=== PATIENT | male | born 1960 | race Caucasian/White ===

== ENCOUNTER 2023-01-31 15:17 | Emergency (ER) | payer SELFPAY ==
--- OUTSIDE RECORDS SUMMARY | 2023-01-31 15:19 | XMS REPORT | Continuity of Care Document ---
:[address] [facility] t Address [address] [place] [address] [address] [place] [address] Care Team Providers Name Role Phone NANCY REAVES Attending Clinician Unavailable BRANDT CHANG Attending Clinician Unavailable BRIGIDO SCHWARZ Attending Clinician Unavailable BRANDT CHANG Admitting Clinician Unavailable Problems This patient has no known problems. Allergies, Adverse Reactions, Alerts This patient has no known allergies or adverse reactions. Medications This patient has no known medications. Procedures This patient has no known procedures. Encounters Start End Encounter Admission Attending Care Care Encounter Source Date/Time Date/Time Type Type Clinicians Facility Department ID 2021-06-12 2021-06-12 Outpatient NANCY REAVES [id number] 10:40:00 15:56:00 moises de leon 2019-09-06 2019-09-07 Outpatient LANDEN CHANG [id number] 17:45:00 11:30:00 BRANDT 2019-07-11 2019-07-11 Emergency E RACHEL SCHWARZ [facility] [id number] [facility] 10:04:00 13:39:00 BRIGIDO de leon 2019-03-02 2019-03-02 Emergency E [id number] [facility] 18:45:00 18:45:00 2018-10-08 2018-10-08 Emergency E [id number] [facility] 11:35:00 11:35:00 Results This patient has no known results.
[2023-01-31] MEDS ORDERED: MORPHINE 4 MG/ML SYR ONE (15:37)
[2023-01-31] MEDS ORDERED: NA CHLORIDE 0.9% 1,000 ML ONE (15:37)
[2023-01-31] MEDS ORDERED: KETOROLAC 30 MG/ML INJ ONE (15:37)
[2023-01-31] MEDS ORDERED: ONDANSETRON 4 MG/2 ML VIAL ONE (15:37)
[2023-01-31 15:41] LABS: Absolute Lymphocytes (CBC) 1.9 K/uL (0.7-4.9); Hematocrit 47.4 % (39.6-49.0); MCV 90.2 fL (80-100); MPV 8.7 fL (7.6-11.3); Platelets 209 thou/uL (152-406); RBC Red Blood Cell Count 5.26 M/uL (4.33-5.43)
[2023-01-31 15:58] LABS: Albumin 3.8 g/dL (3.4-5.0); Bilirubin Total 0.5 mg/dL (0.2-1.0); Potassium 3.9 mEq/L (3.5-5.1); Protein, Total 7.4 g/dL (6.4-8.2)
--- NOTE | 2023-01-31 16:32 | RAD REPORT ---
EXAM DESCRIPTION: CTAbdomen Pelvis W Contrast - 01/31/2023 4:16 pm CLINICAL HISTORY: Abdominal pain. FLANK PAIN COMPARISON: No comparisons TECHNIQUE: Biphasic CT imaging of the abdomen and pelvis was performed with 100 ml non-ionic IV cont rast. All CT scans are performed using dose optimization technique as appropriate and may include automated exposure control or mA/KV adjustment according to patient size. FINDINGS: The lung bases are clear. The liver, spleen, pancreas, adrenal glands are within normal limits. Moderately severe bilateral hyd ronephrosis and hydroureter. 8 mm calculus is present in the right renal pelvis. 4 mm calculus is see n superior calyx left kidney. 3 mm calculus is seen in the dependent portion of the urinary bladder. Prostate gland projects slightly into the bladder base. No bowel obstruction, free air, free fluid or abscess. Small fat containing right inguinal hernia. Ap pendectomy. Diverticulosis coli is present of the sigmoid colon. No evidence of significant lymphaden opathy. Mild lumbar degenerative changes. IMPRESSION: Moderate bilateral hydronephrosis and hydroureter noted. 8 mm stone is present right renal pelvis. 4 mm stone superior calyx left kidney. 3 mm stone is present urinary bladder.
[2023-01-31 16:36] LABS: Specific Gravity 1.025 (1.005-1.030); Urine Bacteria <20 /HPF (<20); Urine Bilirubin NEGATIVE (Negative); Urine Blood Trace (Negative); Urine Clarity Turbid (Clear); Urine Color Light-Yellow (Yellow); Urine Glucose NEGATIVE (Negative); Urine Mucus Slight /HPF (None Seen); Urine Protein 1+ (Negative); Urine RBC <5 /HPF (None Seen); Urine Urobilinogen Normal (Normal); Urine pH 5.5 (5.0-7.0)
--- NOTE | 2023-01-31 16:53 | EDPHYS ---
Physician Documentation [facility] Name: Roland Gavin Age: 62 yrs Sex: Male : 1960 Arrival Date: 01/31/2023 Time: 15:17 Bed 15 Private MD: ED Physician Jc Varghese HPI: 01/31 15:19 This 62 yrs old Male presents to ER via Unassigned with complaints of right flank pain. sb4 15:19 The patient complains of pain in the right low back. The pain radiates to the right sb4 lower quadrant. Onset: The symptoms/episode began/occurred today. Modifying factors: The symptoms are alleviated by nothing. the symptoms are aggravated by nothing. Associated signs and symptoms: Pertinent positives: dysuria, hematuria. Severity of pain: At its worst the pain was severe. The patient has experienced similar episodes in the past, a few times. The patient has been recently seen by a physician: in outside ED, 2 day(s) ago, with similar presenting complaints, and apparently given a diagnosis of 10 mm and 5 mm nephrolithiasis. Historical: - Allergies: 15:22 No Known Allergies; mb9 - Home Meds: 15:22 None [Active]; mb9 - PMHx: 15:22 None; mb9 - PSHx: 15:22 back; mb9 - Immunization history:: Adult Immunizations up to date. - Social history:: Smoking status: Patient denies any tobacco usage or history of. ROS: 15:23 Constitutional: Negative for fever, chills, and weight loss, sb4 15:23 Back: Positive for 15:23 Back: Positive for flank pain, 15:23 : Positive for small amounts, hematuria, difficulty urinating, 15:23 All other systems are negative, Exam: 15:23 Head/Face: Normocephalic, atraumatic. Eyes: Extra-ocular motions intact. Periorbital sb4 areas with no swelling, redness, or edema. ENT: Mucous membranes moist. Cardiovascular: Regular rate and rhythm with a normal S1 and S2. Respiratory: Lungs have equal breath sounds bilaterally, clear to auscultation and percussion. No rales, rhonchi or wheezes noted. No increased work of breathing, no retractions or nasal flaring. Skin: Warm, dry with normal turgor. Normal color with no rashes, no lesions, and no evidence of cellulitis. MS/ Extremity: Pulses equal, no cyanosis. Neurovascular intact. Full, normal range of motion. 15:23 Constitutional: The patient appears alert, awake, in obvious pain, 15:23 Abdomen/GI: Inspection: obese Palpation: abdomen is soft and non-tender, Vital Signs: 15:20 BP 163 / 112; Pulse 88; Resp 18; Temp 98; Pulse Ox 100% on R/A; Weight 111.13 kg; mb9 Height 6 ft. 0 in. ; Pain 10/10; 16:12 BP 137 / 92; Pulse 91; Resp 18; Pulse Ox 99% on R/A; mb9 16:46 BP 139 / 88; Pulse 76; Resp 18; Pulse Ox 98% on R/A; mb9 15:20 Body Mass Index 33.23 (111.13 kg, 182.88 cm) mb9 15:20 Pain Scale: Adult mb9 MDM: 15:17 Patient medically screened. sb4 15:23 Differential diagnosis: nephrolithiasis, pyelonephritis, UTI, ureterolithiasis, sb4 hydronephrosis. 17:04 Data reviewed: vital signs, nurses notes, EMS record, lab test result(s), radiologic sb4 studies, I have discussed the patient's presentation/case with the attending Emergency Department Physician; and as a result, I will discharge patient. Consideration of Admission/Observation Escalation of care including admission/observation considered. Historians other than the Patient: Spouse/Significant Other: . Counseling: I had a detailed discussion with the patient and/or guardian regarding the historical points, exam findings, and any diagnostic results supporting the discharge/admit diagnosis, the presence of at least one elevated blood pressure reading (>120/80) during this emergency department visit, lab results, radiology results, the need for outpatient follow up, a urologist, to return to the emergency department if symptoms worsen or persist or if there are any questions or concerns that arise at home. ED course: when patient returned from CT, he was able to urinate a large amount, relieving his pain. CT showing stone in the renal pelvis, no current obstruction. I discussed all of these findings with patient and his and the option to transfer for urologic intervention. they stated that since his pain is better now and they already have a urology appointment in a few days, they would prefer to go home. strict return precautions given. I provided them with CT disc and results. they are in agreement and understand the plan. 01/31 15:18 Order name: CBC with Diff; Complete Time: 15:43 sb4 01/31 15:18 Order name: CMP; Complete Time: 16:08 sb4 01/31 15:18 Order name: UAM; Complete Time: 16:37 sb4 01/31 15:18 Order name: CT Abd/Pelvis - IV Contrast Only; Complete Time: 16:37 sb4 01/31 15:18 Order name: IV Saline Lock; Complete Time: 15:32 sb4 01/31 15:18 Order name: Labs collected and sent; Complete Time: 15:32 sb4 01/31 15:18 Order name: Bladder Scanner; Complete Time: 16:02 sb4 Administered Medications: 15:25 Drug: NS 0.9% IV 1000 ml IV at 1 bolus Per protocol; 1000 mL bolus Route: IV; Rate: 1 mb9 bolus; Site: left antecubital; 16:46 Follow up: Response: No adverse reaction; IV Status: Completed infusion mb9 15:25 Drug: Ondansetron IVP 4 mg IVP once; over 2 minutes Route: IVP; Site: left antecubital; mb9 16:46 Follow up: Response: No adverse reaction mb9 15:28 Drug: TORadol - Ketorolac IVP 15 mg IVP once Route: IVP; Site: left antecubital; mb9 16:47 Follow up: Response: No adverse reaction mb9 15:33 Drug: morphine IVP or IV 4 mg IVP once over 4 mins Route: IVP; Infused Over: 4 mins; mb9 Site: left antecubital; 16:47 Follow up: Response: No adverse reaction mb9 Disposition: 17:20 Co-signature as Attending Physician, Jc Varghese MD I reviewed the patient's care rt provided by the Advanced Practice Provider and agree with the diagnosis and treatment plan. Disposition Summary: 01/31/23 16:53 Discharge Ordered Notes: Location: Home sb4 Problem: new sb4 Symptoms: have improved sb4 Condition: Stable sb4 Diagnosis - Bilateral Nephrolithiasis sb4 Followup: sb4 - With: Private Physician - When: 2 - 3 days - Reason: Further diagnostic work-up, Recheck today's complaints, Re-evaluation by your physician Discharge Instructions: - Discharge Summary Sheet sb4 - Kidney Stones, [id number] sb4 Forms: - Work release form eb - Medication Reconciliation Form sb4 - Thank You Letter sb4 - Antibiotic Education sb4 - Prescription Opioid Use sb4 - Patient Portal Instructions sb4 - Leadership Thank You Letter sb4 Prescriptions: - acetaminophen-codeine 300-30 mg Oral tablet - take 1 tablet ORAL route every 6 hours as needed for pain; 12 tablet; Refills: sb4 0, Product Selection Permitted - ketorolac 10 mg Oral tablet - take 1 tablet ORAL route every 4 to 6 hours as needed for pain; do not exceed 4 sb4 doses per 24 hrs; 15 tablet; Refills: 0, Product Selection Permitted Signatures: Dispatcher [employer] Jazz Rice PA-C PA-C sb4 Darlin Davis RN RN mb9 Jc Varghese MD MD rt
--- NOTE | 2023-01-31 16:53 | ER ---
Nurse's Notes [facility] Name: Roland Gavin Age: 62 yrs Sex: Male : 1960 Arrival Date: 01/31/2023 Time: 15:17 Bed 15 Private MD: Diagnosis: Bilateral Nephrolithiasis Presentation: 01/31 15:20 Chief complaint: EMS states: "toned out for worsening kidney stone and severe pain. Pt mb9 denies N/V. pt states his bladder feels full and he isn't able to urinate.". Coronavirus screen: Vaccine status: Patient reports receiving the 2nd dose of the covid vaccine. Ebola Screen: No symptoms or risks identified at this time. Initial Sepsis Screen: Does the patient meet any 2 criteria? No. Patient's initial sepsis screen is negative. Does the patient have a suspected source of infection? No. Patient's initial sepsis screen is negative. Risk Assessment: Do you want to hurt yourself or someone else? Patient reports no desire to harm self or others. Onset of symptoms was January 31, 2023. 15:20 Method Of Arrival: EMS: [facility] mb9 15:20 Acuity: SHI 3 mb9 Historical: - Allergies: 15:22 No Known Allergies; mb9 - Home Meds: 15:22 None [Active]; mb9 - PMHx: 15:22 None; mb9 - PSHx: 15:22 back; mb9 - Immunization history:: Adult Immunizations up to date. - Social history:: Smoking status: Patient denies any tobacco usage or history of. Screenin:34 [facility] ED Fall Risk Assessment (Adult) History of falling in the last 3 months, mb9 including since admission No falls in past 3 months (0 pts) Confusion or Disorientation No (0 pts) Intoxicated or Sedated No (0 pts) Impaired Gait No (0 pts) Mobility Assist Device Used No (0 pt) Altered Elimination No (0 pt) Score/Fall Risk Level 0 - 2 = Low Risk Oriented to surroundings, Maintained a safe environment, Educated pt \\T\\ family on fall prevention, incl call for assistance when getting out of bed. Abuse screen: Denies threats or abuse. Nutritional screening: No deficits noted. Tuberculosis screening: No symptoms or risk factors identified. Assessment: 15:33 General: Appears uncomfortable, Behavior is cooperative. Pain: Complains of pain in mb9 abdomen and right lower quadrant and right low back Pain does not radiate. Pain currently is 10 out of 10 on a pain scale. Quality of pain is described as throbbing, Pain began suddenly, Is continuous. Neuro: Dougherty Agitation-Sedation Scale (RASS): 0 - Alert and Calm Level of Consciousness is awake, alert, obeys commands, Oriented to person, place, time, situation, Appropriate for age. Cardiovascular: Heart tones S1 S2 present Patient's skin is warm and dry. Respiratory: Airway is patent Respiratory effort is even, unlabored, Respiratory pattern is regular, symmetrical, Breath sounds are clear bilaterally. GI: Abdomen is round Bowel sounds present X 4 quads. Abd is soft X 4 quads Abd is non tender X 4 quads. : Urine is clear. : Reports inability to void, since this morning. EENT: No signs and/or symptoms were reported regarding the EENT system. Derm: Skin is pink, warm \\T\\ dry. 16:11 Reassessment: Patient and/or family updated on plan of care and expected duration. Pain mb9 level reassessed. Patient is alert, oriented x 3, equal unlabored respirations, skin warm/dry/pink. Patient states feeling better. Patient states symptoms have improved. 17:04 Reassessment: No changes from previously documented assessment. Patient and/or family mb9 updated on plan of care and expected duration. Pain level reassessed. Patient is alert, oriented x 3, equal unlabored respirations, skin warm/dry/pink. Vital Signs: 15:20 BP 163 / 112; Pulse 88; Resp 18; Temp 98; Pulse Ox 100% on R/A; Weight 111.13 kg; mb9 Height 6 ft. 0 in. ; Pain 10/10; 16:12 BP 137 / 92; Pulse 91; Resp 18; Pulse Ox 99% on R/A; mb9 16:46 BP 139 / 88; Pulse 76; Resp 18; Pulse Ox 98% on R/A; mb9 15:20 Body Mass Index 33.23 (111.13 kg, 182.88 cm) mb9 15:20 Pain Scale: Adult mb9 ED Course: 15:17 Patient arrived in ED. sb4 15:17 Jazz Gutierrez PA-C is PHCP. sb4 15:17 Jc Varghese MD is Attending Physician. sb4 15:20 Darlin Davis, BUCK is Primary Nurse. mb9 15:22 Triage completed. mb9 15:22 Arm band placed on. mb9 15:22 Inserted saline lock: 18 gauge in left antecubital area, using aseptic technique. mb9 15:33 CBC with Diff Sent. mb9 15:33 CMP Sent. mb9 15:34 No provider procedures requiring assistance completed. mb9 16:12 Placed in gown. Bed in low position. Call light in reach. Side rails up X 1. Client mb9 placed on continuous cardiac and pulse oximetry monitoring. NIBP monitoring applied. traffic monitor specialist on. 16:18 CT Abd/Pelvis - IV Contrast Only In Process Unspecified. EDMS 17:04 IV discontinued, intact, bleeding controlled, No redness/swelling at site. Pressure mb9 dressing applied. Administered Medications: 15:25 Drug: NS 0.9% IV 1000 ml IV at 1 bolus Per protocol; 1000 mL bolus Route: IV; Rate: 1 mb9 bolus; Site: left antecubital; 16:46 Follow up: Response: No adverse reaction; IV Status: Completed infusion mb9 15:25 Drug: Ondansetron IVP 4 mg IVP once; over 2 minutes Route: IVP; Site: left antecubital; mb9 16:46 Follow up: Response: No adverse reaction mb9 15:28 Drug: TORadol - Ketorolac IVP 15 mg IVP once Route: IVP; Site: left antecubital; mb9 16:47 Follow up: Response: No adverse reaction mb9 15:33 Drug: morphine IVP or IV 4 mg IVP once over 4 mins Route: IVP; Infused Over: 4 mins; mb9 Site: left antecubital; 16:47 Follow up: Response: No adverse reaction mb9 Medication: 15:34 VIS not applicable for this client. mb9 Output: 16:24 Urine: 330ml (Voided); Total: 330ml. mb9 Outcome: 16:53 Discharge ordered by . sb4 17:04 Discharged to home ambulatory, with family, mb9 17:04 Condition: stable 17:04 Discharge instructions given to patient, family, Instructed on discharge instructions, follow up and referral plans. Demonstrated understanding of instructions, follow-up care, medications, Prescriptions given X 2, 17:04 Patient left the ED. mb9 Signatures: Dispatcher [employer] Jazz Rice PA-C PA-C sb4 Darlin Davis, RN RN mb9
[2023-01-31 17:30] VITALS: TEMP 98
[2023-01-31 17:42] VITALS: BP 139/88; O2SAT 98
== END 2023-01-31 17:04 | disposition home or self-care (01) ==
LOC: ER 15:17
DX: N20.0 Calculus of kidney (principal); R30.0 Dysuria; R31.9 Hematuria, unspecified
CPT/HCPCS: 36415; 74177; 80053; 81001; 85025; 96361; 96374; 96375; 99285; J2405; J7030; Q9967